=== PATIENT | female | born 1980 | race Caucasian/White ===

== ENCOUNTER 2017-07-09 13:26 | Emergency (ER) | payer MEDICAID | END 2017-07-09 17:35 | disposition home or self-care (01) | LOC: D.ER 13:26 | DX: M54.5 Low back pain (principal); M62.838 Other muscle spasm ==

== ENCOUNTER 2018-03-18 17:25 | Emergency (ER) | payer MEDICAID ==
[~2018-03-18] VITALS: Ht 165.1 cm; Wt 81.8 kg
[2018-03-18 17:33] VITALS: Ht 165.1 cm; Wt 81.8 kg
[2018-03-18] MEDS ORDERED: LITHIUM CARBON300 MG PO (17:34)
[2018-03-18] MEDS ORDERED: MAVYRET (17:35)
[2018-03-18] MEDS ORDERED: ZOFRAN4 MG (17:35)
[2018-03-18] MEDS ORDERED: KLONOPIN1 MG (17:35)
[2018-03-18 18:09] LABS: BASOPHILS 0.2 % (0-2); EOSINOPHILS 1.8 % (0-7); HEMATOCRIT 37.9 % (36.0-48.0); IMMATURE GRANULOCYTES 0.2 % (0-5); LYMPHOCYTES 16.3 % (15-50); MCHC 34.3 g/dL (31.0-37.0); MCV 90.5 fL (80.0-100.0); MONOCYTES 3.4 % (2-11); NEUTROPHILS 78.1 % (40-80); PLATELET COUNT 274 10x3/uL (130-400); RBC 4.19 10x6/uL (4.00-5.40); RDW 12.7 % (11.5-14.5); WBC 10.8 10x3/uL (4.8-10.8)
[2018-03-18 18:25] LABS: ALBUMIN 3.4 g/dL (3.4-5.0); ALKALINE PHOSPHATASE 79 U/L (46-116); ALT (SGPT) 26 U/L (10-68); BILIRUBIN - TOTAL 0.65 mg/dL (0.2-1.3); CALC OSMOLALITY 278 mosm/kg (275-300); CALCIUM 9.5 mg/dL (8.5-10.1); CARBON DIOXIDE 24.8 mmol/L (21.0-32.0); CHLORIDE - SERUM 107 mmol/L (98-107); CREATININE - SERUM 0.8 mg/dL (0.6-1.3); GLUCOSE 118 mg/dL (74-106); POTASSIUM - SERUM 3.1 mmol/L (3.5-5.1); PROTEIN - SERUM 6.9 g/dL (6.4-8.2); SODIUM 141 mmol/L (136-145); UREA NITROGEN 5 mg/dL (7-18); eGFR NON AFRICAN AMERICAN 86 mL/min (90-120)
[2018-03-18 18:29] LABS: AMYLASE - SERUM 31 U/L (25-115); LIPASE 98 U/L (73-393); TROPONIN-I < 0.017 ng/mL (0.000-0.060)
[2018-03-18 19:13] LABS: APPEARANCE CLEAR (CLEAR); BILIRUBIN NEGATIVE (NEGATIVE); COLOR YELLOW (YELLOW); GLUCOSE NEGATIVE (NEGATIVE); KETONE MODERATE mg/dL (NEGATIVE); NITRITE NEGATIVE (NEGATIVE); PROTEIN TRACE mg/dL (NEGATIVE); SPECIFIC GRAVITY 1.015 (1.005-1.020); UROBILINOGEN NORMAL (NORMAL)
[2018-03-18 19:14] LABS: BACTERIA MODERATE /hpf (NONE SEEN); EPITHELIAL CELLS 0-5 /hpf (0-5); MUCUS <1+ /lpf (NONE SEEN); RED CELLS - URINE 0-5 /hpf (0-5)
[2018-03-18 19:15] LABS: HCG URINE NEGATIVE (NEGATIVE)
[2018-03-18] MEDS ORDERED: CLEOCIN HCL300 MG PO (20:40)
[2018-03-18 21:57] VITALS: BP 133/85
== END 2018-03-18 21:57 | disposition home or self-care (01) ==
LOC: D.ER 17:25
PROVIDERS: Family Medicine
DX: L01.00 Impetigo, unspecified (principal); R10.9 Unspecified abdominal pain; K59.00 Constipation, unspecified; B19.20 Unspecified viral hepatitis C without hepatic coma; F17.200 Nicotine dependence, unspecified, uncomplicated; R00.1 Bradycardia, unspecified

== ENCOUNTER 2020-01-20 11:56 | Emergency (ER) | payer MEDICAID ==
[~2020-01-20] VITALS: Ht 165.1 cm; Wt 72.7 kg
[~2020-01-20 11:56] MED LIST: CLEOCIN HCL300 MG PO; KLONOPIN1 MG; LITHIUM CARBON300 MG PO; MAVYRET; ZOFRAN4 MG
[2020-01-20 12:29] VITALS: Ht 165.1 cm; Wt 72.7 kg
[2020-01-20 12:49] LABS: BASOPHILS 0.2 % (0-2); EOSINOPHILS 0.6 % (0-7); HEMATOCRIT 38.8 % (36.0-48.0); HEMOGLOBIN 13.2 g/dL (12-16); IMMATURE GRANULOCYTES 0.2 % (0-5); LYMPHOCYTES 17.6 % (15-50); MCH 30.1 pg (26.0-34.0); MCV 88.4 fL (80.0-100.0); MEAN PLATELET VOLUME 8.7 fL (7.4-10.4); NEUTROPHILS 74.4 % (40-80); PLATELET COUNT 247 10x3/uL (130-400); RBC 4.39 10x6/uL (4.00-5.40); RDW 12.6 % (11.5-14.5); WBC 10.8 10x3/uL (4.8-10.8)
[2020-01-20 13:00] LABS: CALC OSMOLALITY 266 mosm/kg (275-300); CALCIUM 9.4 mg/dL (8.5-10.1); CHLORIDE - SERUM 101 mmol/L (98-107); CREATININE - SERUM 0.7 mg/dL (0.6-1.3); GLUCOSE 104 mg/dL (74-106); HCG SERUM NEGATIVE (NEGATIVE); POTASSIUM - SERUM 3.7 mmol/L (3.5-5.1); SODIUM 132 mmol/L (136-145); UREA NITROGEN 18 mg/dL (7-18); eGFR NON AFRICAN AMERICAN > 90 mL/min (90-120)
[2020-01-20 13:03] LABS: ALBUMIN 3.9 g/dL (3.4-5.0); ALKALINE PHOSPHATASE 60 U/L (30-120); ALT (SGPT) 17 U/L (10-68); AMYLASE - SERUM 47 U/L (25-115); BILIRUBIN - TOTAL 0.49 mg/dL (0.2-1.3); LIPASE 128 U/L (73-393); PROTEIN - SERUM 7.4 g/dL (6.4-8.2)
[2020-01-20 13:08] LABS: BILIRUBIN NEGATIVE (NEGATIVE); GLUCOSE NEGATIVE (NEGATIVE); KETONE NEGATIVE (NEGATIVE); NITRITE NEGATIVE (NEGATIVE); UROBILINOGEN NORMAL (NORMAL)
[2020-01-20 13:10] LABS: WHITE CELLS - URINE 0-5 /hpf (NEGATIVE)
[2020-01-20 13:12] LABS: BACTERIA FEW /hpf (NEGATIVE); EPITHELIAL CELLS 0-5 /hpf (0-5)
[2020-01-20] MEDS ORDERED: OMNICEF300 MG PO (14:18)
[2020-01-20] MEDS ORDERED: DICLOFENAC SODI50 MG PO (14:18)
[2020-01-20] MEDS ORDERED: ZOFRAN ODT4 MG/UDTAB PO (14:18)
[2020-01-20] MEDS ORDERED: LEVSIN/ANASP0.125 MG PO (14:18)
[2020-01-20 14:59] VITALS: BP 118/74
[2020-01-21] MEDS ORDERED: HYDROCODON-ACE1 EAC7 PO (15:22)
== END 2020-01-20 14:35 | disposition home or self-care (01) ==
LOC: D.ER 11:56
PROVIDERS: Emergency Medicine
DX: J02.9 Acute pharyngitis, unspecified (principal); J06.9 Acute upper respiratory infection, unspecified; M54.2 Cervicalgia; R50.9 Fever, unspecified; R10.30 Lower abdominal pain, unspecified

== ENCOUNTER 2020-01-21 10:04 | Emergency (ER) | payer MEDICAID ==
[~2020-01-21] VITALS: Ht 165.1 cm; Wt 73.9 kg
[~2020-01-21 10:04] MED LIST changes: +DICLOFENAC SODI50 MG PO; +LEVSIN/ANASP0.125 MG PO; +OMNICEF300 MG PO; +ZOFRAN ODT4 MG/UDTAB PO
[2020-01-21 10:15] VITALS: Ht 165.1 cm; Wt 73.9 kg
[2020-01-21 10:40] LABS: CALC OSMOLALITY 269 mosm/kg (275-300); CARBON DIOXIDE 26.7 mmol/L (21.0-32.0); CHLORIDE - SERUM 103 mmol/L (98-107); CREATININE - SERUM 0.8 mg/dL (0.6-1.3); GLUCOSE 101 mg/dL (74-106); POTASSIUM - SERUM 3.6 mmol/L (3.5-5.1); SODIUM 135 mmol/L (136-145); eGFR NON AFRICAN AMERICAN 85 mL/min (90-120)
[2020-01-21 10:43] LABS: UREA NITROGEN 13 mg/dL (7-18)
[2020-01-21 10:46] LABS: ALBUMIN 3.5 g/dL (3.4-5.0); ALKALINE PHOSPHATASE 63 U/L (30-120); ALT (SGPT) 18 U/L (10-68); BILIRUBIN - TOTAL 0.53 mg/dL (0.2-1.3); PROTEIN - SERUM 7.3 g/dL (6.4-8.2)
[2020-01-21 10:48] LABS: MONO NEGATIVE (NEGATIVE)
[2020-01-21 11:01] LABS: BILIRUBIN NEGATIVE (NEGATIVE); GLUCOSE NEGATIVE (NEGATIVE); KETONE NEGATIVE (NEGATIVE); NITRITE NEGATIVE (NEGATIVE); UROBILINOGEN NORMAL (NORMAL)
[2020-01-21 11:05] LABS: BACTERIA FEW /hpf (NEGATIVE); WHITE CELLS - URINE OCC /hpf (NEGATIVE)
[2020-01-21 11:23] LABS: BASOPHILS 0.3 % (0-2); EOSINOPHILS 0.1 % (0-7); HEMATOCRIT 38.9 % (36.0-48.0); HEMOGLOBIN 13.1 g/dL (12-16); IMMATURE GRANULOCYTES 0.2 % (0-5); LYMPHOCYTES 11.6 % (15-50); MCH 29.6 pg (26.0-34.0); MCHC 33.7 g/dL (31.0-37.0); MEAN PLATELET VOLUME 9.2 fL (7.4-10.4); MONOCYTES 6.9 % (2-11); NEUTROPHILS 80.9 % (40-80); PLATELET COUNT 223 10x3/uL (130-400); RBC 4.42 10x6/uL (4.00-5.40); RDW 12.6 % (11.5-14.5); WBC 11.4 10x3/uL (4.8-10.8)
[2020-01-21 14:08] LABS: APPEARANCE - CSF CLEAR
[2020-01-21 14:19] LABS: RBC - CSF 7 cmm (0-0)
[2020-01-21 14:40] LABS: GLUCOSE - CSF 75 MG/DL (40-75); PROTEIN - CSF 34 MG/DL (12-60)
[2020-01-21] MEDS ORDERED: HYDROCODON-ACE1 EAC7 PO (15:22)
[2020-01-21 15:34] VITALS: BP 84/54
[2020-01-23 10:11] LABS: EBV - NUCLEAR ANTIGEN AB IGG >600.0 U/mL (0.0-17.9); EBV VIRAL CAPSID AB IGG >600.0 U/mL (0.0-17.9); EBV VIRAL CAPSID AB IGM <36.0 U/mL (0.0-35.9)
== END 2020-01-21 15:35 | disposition home or self-care (01) ==
LOC: D.ER 10:04
PROVIDERS: Emergency Medicine
DX: R31.29 Other microscopic hematuria (principal); R50.9 Fever, unspecified; B34.9 Viral infection, unspecified; R51 Headache

== ENCOUNTER 2020-04-01 18:13 | Emergency (ER) | payer MEDICAID ==
[~2020-04-01] VITALS: Ht 165.1 cm; Wt 73.6 kg
[~2020-04-01 18:13] MED LIST changes: +HYDROCODON-ACE1 EAC7 PO
[2020-04-01 18:28] VITALS: Ht 165.1 cm; Wt 73.6 kg
[2020-04-01 19:36] LABS: BASOPHILS 0.6 % (0-2); EOSINOPHILS 4.2 % (0-7); HEMATOCRIT 35.6 % (36.0-48.0); HEMOGLOBIN 12.1 g/dL (12-16); IMMATURE GRANULOCYTES 0.2 % (0-5); LYMPHOCYTES 61.9 % (15-50); MCH 30.6 pg (26.0-34.0); MCV 89.9 fL (80.0-100.0); MEAN PLATELET VOLUME 8.8 fL (7.4-10.4); MONOCYTES 6.6 % (2-11); NEUTROPHILS 26.5 % (40-80); PLATELET COUNT 256 10x3/uL (130-400); RBC 3.96 10x6/uL (4.00-5.40); RDW 12.6 % (11.5-14.5); WBC 6.7 10x3/uL (4.8-10.8)
[2020-04-01 20:07] LABS: APTT 29.2 SECONDS (22.8-39.4); CALC OSMOLALITY 276 mosm/kg (275-300); CARBON DIOXIDE 28.7 mmol/L (21.0-32.0); CHLORIDE - SERUM 105 mmol/L (98-107); CREATININE - SERUM 0.8 mg/dL (0.6-1.3); GLUCOSE 85 mg/dL (74-106); INR 0.86 (0.85-1.17); POTASSIUM - SERUM 3.6 mmol/L (3.5-5.1); PROTIME 11.7 SECONDS (11.6-15.0); SODIUM 138 mmol/L (136-145); UREA NITROGEN 18 mg/dL (7-18); eGFR NON AFRICAN AMERICAN 85 mL/min (90-120)
[2020-04-01 20:24] LABS: ALBUMIN 3.8 g/dL (3.4-5.0); ALKALINE PHOSPHATASE 60 U/L (30-120); ALT (SGPT) 23 U/L (10-68); CKMB 6.2 U/L (0.0-3.6); CREATINE KINASE 233 UL (21-215); PRO BNP 26 pg/mL (0-125)
[2020-04-01 20:25] LABS: TROPONIN-I < 0.017 ng/mL (0.000-0.060)
[2020-04-01 20:42] LABS: UDS - AMPHET POSITIVE QUAL (NEGATIVE); UDS - BARB NEGATIVE QUAL (NEGATIVE); UDS - BENZO NEGATIVE QUAL (NEGATIVE); UDS - COCAINE NEGATIVE QUAL (NEGATIVE); UDS - OPIATE POSITIVE QUAL (NEGATIVE); UDS - PCP NEGATIVE QUAL (NEGATIVE); UDS - THC POSITIVE QUAL (NEGATIVE)
[2020-04-01 21:10] LABS: BILIRUBIN NEGATIVE (NEGATIVE); KETONE NEGATIVE (NEGATIVE); NITRITE NEGATIVE (NEGATIVE); UROBILINOGEN NORMAL mg/dL (< 2)
[2020-04-01 21:11] LABS: EPITHELIAL CELLS 0-5 /hpf (0-5)
[2020-04-01 21:12] LABS: BACTERIA FEW HPF (NONE SEEN)
[2020-04-01] MEDS ORDERED: KEFLEX500 MG PO (21:15)
[2020-04-01] MEDS ORDERED: MACROBID100 MG PO (21:15)
[2020-04-01 21:30] VITALS: BP 105/74
== END 2020-04-01 21:31 | disposition home or self-care (01) ==
LOC: D.ER 18:13
PROVIDERS: Emergency Medicine; Family Medicine
DX: F15.90 Other stimulant use, unspecified, uncomplicated (principal); M54.2 Cervicalgia; R51.9 Headache, unspecified; R21 Rash and other nonspecific skin eruption

== ENCOUNTER 2020-09-27 21:12 | Emergency (ER) | payer BC ==
[~2020-09-27] VITALS: Ht 165.1 cm; Wt 59.1 kg
[~2020-09-27 21:12] MED LIST changes: +IBUPROFEN; +KEFLEX500 MG PO; +MACROBID100 MG PO
[2020-09-27 21:16] VITALS: Ht 165.1 cm; Wt 59.1 kg
[2020-09-27 21:49] LABS: UDS - AMPHET POSITIVE QUAL (NEGATIVE); UDS - BARB NEGATIVE QUAL (NEGATIVE); UDS - BENZO NEGATIVE QUAL (NEGATIVE); UDS - COCAINE NEGATIVE QUAL (NEGATIVE); UDS - OPIATE NEGATIVE QUAL (NEGATIVE); UDS - PCP NEGATIVE QUAL (NEGATIVE); UDS - THC POSITIVE QUAL (NEGATIVE)
[2020-09-27 21:51] LABS: BILIRUBIN NEGATIVE (NEGATIVE); KETONE NEGATIVE (NEGATIVE); NITRITE NEGATIVE (NEGATIVE); SQUAMOUS EPITHELIAL OCC HPF (0-4); UROBILINOGEN NORMAL mg/dL (< 2); WHITE CELLS - URINE 0-5 HPF (0-4)
[2020-09-27 21:52] LABS: BACTERIA FEW HPF (NONE SEEN)
[2020-09-27 23:10] VITALS: BP 102/40
== END 2020-09-27 23:11 | disposition home or self-care (01) ==
LOC: D.ER 21:12
PROVIDERS: Family Medicine
DX: M54.5 Low back pain (principal); F15.129 Other stimulant abuse with intoxication, unspecified

== ENCOUNTER 2020-10-01 05:55 | Emergency (ER) | payer BC ==
[2020-10-01 06:21] VITALS: BP 84/60; Ht 165.1 cm
[2020-10-01 06:32] LABS: CALC OSMOLALITY 279 mosm/kg (275-300); CALCIUM 8.8 mg/dL (8.5-10.1); CARBON DIOXIDE 28.1 mmol/L (21.0-32.0); CHLORIDE - SERUM 102 mmol/L (98-107); CREATININE - SERUM 0.8 mg/dL (0.6-1.3); GLUCOSE 103 mg/dL (74-106); POTASSIUM - SERUM 4.1 mmol/L (3.5-5.1); SODIUM 138 mmol/L (136-145); UREA NITROGEN 25 mg/dL (7-18); eGFR NON AFRICAN AMERICAN 85 mL/min (90-120)
[2020-10-01 06:33] LABS: HEMATOCRIT 37.3 % (36.0-48.0); LYMPHOCYTE ABS# 3.83 10x3/uL (1.18-3.74); MCH 29.6 pg (26.0-34.0); MCHC 32.2 g/dL (31.0-37.0); MCV 91.9 fL (80.0-100.0); MEAN PLATELET VOLUME 9.5 fL (7.4-10.4); NEUTROPHIL ABS# 3.31 10x3/uL (1.56-6.13); RBC 4.06 10x6/uL (4.00-5.40); RDW 13.4 % (11.5-14.5)
[2020-10-01 06:38] LABS: ALBUMIN 3.1 g/dL (3.4-5.0); ALKALINE PHOSPHATASE 63 U/L (30-120); ALT (SGPT) 63 U/L (10-68); CREATINE KINASE 59 UL (21-215); LIPASE 228 U/L (73-393); PROTEIN - SERUM 6.1 g/dL (6.4-8.2)
[2020-10-01 06:39] LABS: PLATELET COUNT 288 10x3/uL (130-400)
[2020-10-01 06:40] LABS: BILIRUBIN - TOTAL 0.06 mg/dL (0.2-1.3); C-REACTIVE PROTEIN < 0.2 mg/dL (0.0-0.9)
[2020-10-01] MEDS ORDERED: CYCLOBENZAPRINE10 MG PO (07:02)
[2020-10-01 07:18] LABS: UDS - AMPHET NEGATIVE QUAL (NEGATIVE); UDS - BARB NEGATIVE QUAL (NEGATIVE); UDS - BENZO POSITIVE QUAL (NEGATIVE); UDS - COCAINE NEGATIVE QUAL (NEGATIVE); UDS - OPIATE POSITIVE QUAL (NEGATIVE); UDS - PCP NEGATIVE QUAL (NEGATIVE); UDS - THC POSITIVE QUAL (NEGATIVE)
[2020-10-01 07:24] LABS: AMORPHOUS SEDIMENT <1+ LPF (NONE SEEN); BILIRUBIN NEGATIVE (NEGATIVE); KETONE NEGATIVE (NEGATIVE); NITRITE NEGATIVE (NEGATIVE); SQUAMOUS EPITHELIAL 0-5 HPF (0-4); UROBILINOGEN NORMAL mg/dL (< 2); WHITE CELLS - URINE 0-5 HPF (0-4)
[2020-10-01 07:25] LABS: BACTERIA FEW HPF (NONE SEEN)
[2020-10-01 09:12] LABS: EOSINOPHILS 5 % (0-7); LYMPHOCYTES 41 % (15-50); MONOCYTES 10 % (2-11); NEUTROPHILS 43 % (40-80); PLATELET ESTIMATE NORMAL
== END 2020-10-01 07:45 | disposition home or self-care (01) ==
LOC: D.ER 05:55
PROVIDERS: Family Medicine
DX: M54.5 Low back pain (principal)